=== PATIENT | male | born 2000 | race Caucasian/White ===

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

== ENCOUNTER 2022-05-13 00:51 | Emergency (ER) | payer MEDICAID ==
[~2022-05-13] VITALS: Ht 177.8 cm; Wt 89.0 kg
[~2022-05-13 00:51] MED LIST changes: +KEPP500 MT
[2022-05-13] MEDS ORDERED: ACETAMINOPHEN 325MG TABLET PO STA (01:51)
[2022-05-13] MEDS ORDERED: LEVETIRACETAM 1000MG PREMIX 100 ML IV ONE (02:00)
[2022-05-13] MEDS ORDERED: SODIUM CHLORIDE 0.9% 1,000 ML IV ONE (02:00)
[2022-05-13 02:40] LABS: BASOPHILS % 0.3 % (0.0-2.0); HEMOGLOBIN. 15.2 g/dL (14.0-18.0); LYMPHOCYTES % 8.2 % (20.0-50.0); MEAN CORPUSCULAR HEMOGLOBIN 31.3 pg (28.0-32.0); MEAN CORPUSCULAR VOLUME 92.8 fL (80.0-94.0); MEAN PLATELET VOLUME 8.2 fl (7.4-10.4); MONOCYTES % 5.8 % (2.0-8.0); NEUTROPHILS % 85.7 % (40.0-76.0); PLATELET 266 x1000/uL (130-400); RED BLOOD CELL COUNT 4.85 mill/uL (4.7-6.1)
[2022-05-13] MEDS ORDERED: KEPP500 MT (04:12)
[2022-05-13 04:25] VITALS: BP 115/61
[2022-05-13 05:35] LABS: CHLORIDE 103 mEq/L (98-107)
== END 2022-05-13 04:55 | disposition home or self-care (01) ==
LOC: ER 00:51
DX: R56.9 Unspecified convulsions (principal); F12.10 Cannabis abuse, uncomplicated; Z98.890 Other specified postprocedural states
CPT/HCPCS: 36415; 80053; 85025; 96365; 99284; J1953; J7030

== ENCOUNTER 2022-06-26 21:19 | Emergency (ER) | payer MEDICAID ==
[~2022-06-26] VITALS: Ht 177.8 cm; Wt 69.0 kg
[2022-06-26 21:34] VITALS: BP 132/76
== END 2022-06-26 22:30 | disposition left against medical advice (07) ==
LOC: ER 21:19
DX: Z53.21 Procedure and treatment not carried out due to patient leaving prior to being seen by health care provider (principal)

== ENCOUNTER 2022-08-13 14:40 | Emergency (ER) | payer MEDICAID ==
[~2022-08-13] VITALS: Ht 172.7 cm; Wt 82.0 kg
[2022-08-13] MEDS ORDERED: LEVETIRACETAM 500MG TABLET PO ONE (15:15)
[2022-08-13 15:35] LABS: BASOPHILS % 0.4 % (0.0-2.0); EOSINOPHILS % 0.1 % (0.0-5.0); HEMATOCRIT. 45.3 % (42.0-52.0); HEMOGLOBIN. 15.2 g/dL (14.0-18.0); LYMPHOCYTES % 10.2 % (20.0-50.0); MEAN CORPUSCULAR HEMOGLOBIN 31.3 pg (28.0-32.0); MEAN CORPUSCULAR VOLUME 93.2 fL (80.0-94.0); MEAN PLATELET VOLUME 7.6 fl (7.4-10.4); MONOCYTES % 3.9 % (2.0-8.0); NEUTROPHILS % 85.4 % (40.0-76.0); PLATELET 302 x1000/uL (130-400); RED BLOOD CELL COUNT 4.86 mill/uL (4.7-6.1); RED CELL DISTRIBUTION WIDTH 13.5 % (11.6-14.6)
[2022-08-13 15:37] LABS: CHLORIDE 105 mEq/L (98-107)
[2022-08-13 15:45] LABS: ETHANOL BLOOD < 10 mg/dL
[2022-08-13] MEDS ORDERED: ACETAMINOPHEN 325MG TABLET PO ONE (16:00)
[2022-08-13] MEDS ORDERED: ONDANSETRON HCL 4MG/2ML INJ IV ONE (16:00)
[2022-08-13] MEDS ORDERED: KEPP500 MT (16:56)
[2022-08-13 17:46] VITALS: BP 130/59
== END 2022-08-13 17:50 | disposition home or self-care (01) ==
LOC: ER 14:40
DX: G40.909 Epilepsy, unspecified, not intractable, without status epilepticus (principal); R51.9 Headache, unspecified; Z91.14 Patient's other noncompliance with medication regimen
CPT/HCPCS: 36415; 70450; 80053; 80320; 85025; 99284; J2405; G0480

== ENCOUNTER 2022-10-24 04:16 | Emergency (ER) | payer MEDICAID ==
[~2022-10-24] VITALS: Ht 175.3 cm; Wt 95.6 kg
[2022-10-24 04:25] VITALS: BP 106/63; PULSE 99; RESP 14; TEMP 98.2; O2SAT 98
[2022-10-24] MEDS ORDERED: LEVETIRACETAM 500MG TABLET PO ONE (06:30)
[2022-10-24] MEDS ORDERED: SUCR1TAB MT ×2 (07:54)
[2022-10-24] MEDS ORDERED: PROT20 MT ×2 (07:54)
== END 2022-10-24 08:32 | disposition home or self-care (01) ==
LOC: ER 04:16
DX: R41.0 Disorientation, unspecified (principal)
CPT/HCPCS: 99284

== ENCOUNTER 2022-12-01 19:48 | Emergency (ER) | payer MEDICAID ==
[~2022-12-01] VITALS: Ht 175.3 cm; Wt 84.0 kg
[2022-12-01 19:51] VITALS: BP 131/67
== END 2022-12-02 01:01 | disposition left against medical advice (07) ==
LOC: ER 19:48
DX: R11.2 Nausea with vomiting, unspecified (principal); Z53.21 Procedure and treatment not carried out due to patient leaving prior to being seen by health care provider
CPT/HCPCS: 99281

== ENCOUNTER 2023-03-30 10:13 | Emergency (ER) | payer MEDICAID ==
[~2023-03-30] VITALS: Ht 175.3 cm; Wt 88.0 kg
[2023-03-30 10:22] VITALS: BP 131/89; PULSE 105; RESP 20; TEMP 98.8; O2SAT 99
[2023-03-30] MEDS ORDERED: NIRM1TAB4 PO (11:23)
== END 2023-03-30 12:33 | disposition home or self-care (01) ==
LOC: ER 10:13
DX: U07.1 COVID-19 (principal); Z98.890 Other specified postprocedural states
CPT/HCPCS: 99283

== ENCOUNTER 2023-05-22 18:44 | Emergency (ER) | payer MEDICAID ==
[~2023-05-22] VITALS: Ht 175.3 cm; Wt 100.0 kg
[~2023-05-22 18:44] MED LIST changes: +NIRM1TAB4 PO
[2023-05-22 18:58] VITALS: BP 151/76; PULSE 120; RESP 18; TEMP 98.3; O2SAT 95
== END 2023-05-22 20:30 | disposition home or self-care (01) ==
LOC: ER 18:44
DX: R21 Rash and other nonspecific skin eruption (principal)
CPT/HCPCS: 99281

== ENCOUNTER 2023-06-12 14:34 | Emergency (ER) | payer MEDICAID ==
[~2023-06-12] VITALS: Ht 175.3 cm; Wt 100.0 kg
[2023-06-12 14:47] VITALS: BP 122/87; PULSE 81; RESP 16; TEMP 98.3; O2SAT 96
[2023-06-12] MEDS ORDERED: TOPUD MT (16:25)
== END 2023-06-12 19:19 | disposition home or self-care (01) ==
LOC: ER 14:51
DX: R56.9 Unspecified convulsions (principal)
CPT/HCPCS: 99282

== ENCOUNTER 2023-08-10 19:03 | Emergency (ER) | payer MEDICAID ==
[~2023-08-10] VITALS: Ht 175.3 cm; Wt 91.0 kg
[~2023-08-10 19:03] MED LIST changes: +TOPUD MT
[2023-08-10 19:17] VITALS: TEMP 97.7; O2SAT 97
[2023-08-10 20:46] LABS: CLARITY URINE CLEAR (CLEAR); COLOR URINE YELLOW (YELLOW); GLUCOSE URINE NEGATIVE (NEGATIVE); KETONES URINE NEGATIVE (NEGATIVE); LEUKOCYTE ESTERASE URINE NEGATIVE (NEGATIVE); NITRITE URINE NEGATIVE (NEGATIVE); OCCULT BLOOD URINE NEGATIVE (NEGATIVE); PROTEIN URINE NEGATIVE (NEGATIVE); SPECIFIC GRAVITY URINE 1.027 (1.005-1.030); UROBILINOGEN URINE 0.2 E.U./dL (0.2-1.0)
[2023-08-10 21:25] VITALS: BP 126/83; PULSE 88; RESP 16
== END 2023-08-10 21:26 | disposition home or self-care (01) ==
LOC: ER 19:03
DX: R35.0 Frequency of micturition (principal); R56.9 Unspecified convulsions; Z98.890 Other specified postprocedural states
CPT/HCPCS: 81003; 82962; 99283

== ENCOUNTER 2023-10-19 22:39 | Emergency (ER) | payer MEDICAID ==
[~2023-10-19] VITALS: Ht 172.7 cm; Wt 80.0 kg
[2023-10-19 22:42] VITALS: O2SAT 97
[2023-10-19] MEDS: LEVETIRACETAM 500MG TABLET PO ONE (23:45)
[2023-10-20 00:09] LABS: HEMATOCRIT. 44.3 % (42.0-52.0); HEMOGLOBIN. 14.9 g/dL (14.0-18.0); MEAN CORPUSCULAR HEMOGLOBIN 31.5 pg (28.0-32.0); MEAN CORPUSCULAR HGB CONC 33.8 g/dL (31.0-37.0); MEAN CORPUSCULAR VOLUME 93.2 fL (80.0-94.0); MEAN PLATELET VOLUME 7.4 fl (7.4-10.4); PLATELET 284 x1000/uL (130-400); RED BLOOD CELL COUNT 4.75 mill/uL (4.7-6.1); RED CELL DISTRIBUTION WIDTH 15.1 % (11.6-14.6); WHITE BLOOD COUNT 12.7 x1000/uL (4.5-11.0)
[2023-10-20 00:22] LABS: DIFFERENTIAL COMMENT 1
[2023-10-20 00:32] LABS: ALANINE AMINOTRANSFERASE 45 IU/L (10-49); ASPARTATE AMINOTRANSFERASE 29 IU/L (<34); BILIRUBIN TOTAL 0.8 mg/dL (0.1-1.0); CALCIUM 9.1 mg/dL (8.7-10.4); CARBON DIOXIDE 25 mEq/L (21-32); CHLORIDE 104 mEq/L (98-107); CREATININE 0.8 mg/dL (0.6-1.3); GLUCOSE 107 mg/dL (70-105); POTASSIUM 4.1 mEq/L (3.5-5.1); PROTEIN TOTAL 8.4 g/dL (6.0-8.3); SODIUM 137 mEq/L (136-145); UREA NITROGEN BLOOD 12 mg/dL (9-23)
[2023-10-20] MEDS: IBUPROFEN 800MG TABLET PO NR (01:14)
[2023-10-20] MEDS: HYDROCODONE/ACETAMINOPHEN 5/325MG TABLET PO NR (01:15)
[2023-10-20 01:19] VITALS: BP 124/82; PULSE 121; RESP 18; TEMP 98.8
[2023-10-20 02:13] LABS: PLATELET ESTIMATE NORMAL
== END 2023-10-20 01:21 | disposition home or self-care (01) ==
LOC: ER 22:39
DX: R51.9 Headache, unspecified (principal); R11.2 Nausea with vomiting, unspecified; R53.1 Weakness; G40.909 Epilepsy, unspecified, not intractable, without status epilepticus
CPT/HCPCS: 36415; 80053; 85025; 99284

== ENCOUNTER 2023-10-22 04:22 | Emergency (ER) | payer MEDICAID ==
[~2023-10-22] VITALS: Ht 180.3 cm; Wt 100.0 kg
[2023-10-22 04:28] VITALS: O2SAT 98
[2023-10-22 05:46] LABS: BASOPHILS % 1.1 % (0.0-2.0); EOSINOPHILS % 0.2 % (0.0-5.0); HEMOGLOBIN. 14.9 g/dL (14.0-18.0); LYMPHOCYTES % 34.2 % (20.0-50.0); MEAN CORPUSCULAR HEMOGLOBIN 31.9 pg (28.0-32.0); MEAN CORPUSCULAR HGB CONC 33.9 g/dL (31.0-37.0); MEAN CORPUSCULAR VOLUME 93.9 fL (80.0-94.0); MEAN PLATELET VOLUME 7.5 fl (7.4-10.4); MONOCYTES % 8.6 % (2.0-8.0); NEUTROPHILS % 55.9 % (40.0-76.0); PLATELET 320 x1000/uL (130-400); RED BLOOD CELL COUNT 4.69 mill/uL (4.7-6.1); WHITE BLOOD COUNT 5.9 x1000/uL (4.5-11.0)
[2023-10-22 06:07] LABS: ALANINE AMINOTRANSFERASE 78 IU/L (10-49); ALBUMIN 5.2 g/dL (3.2-4.8); ASPARTATE AMINOTRANSFERASE 59 IU/L (<34); BILIRUBIN TOTAL 0.2 mg/dL (0.1-1.0); CALCIUM 8.4 mg/dL (8.7-10.4); CARBON DIOXIDE 18 mEq/L (21-32); CHLORIDE 112 mEq/L (98-107); CREATININE 0.7 mg/dL (0.6-1.3); ETHANOL BLOOD 267 mg/dL (<10); GLUCOSE 98 mg/dL (70-105); POTASSIUM 3.2 mEq/L (3.5-5.1); PROTEIN TOTAL 8.7 g/dL (6.0-8.3); SODIUM 142 mEq/L (136-145); UREA NITROGEN BLOOD 10 mg/dL (9-23)
[2023-10-22 06:12] LABS: CLARITY URINE CLEAR (CLEAR); COLOR URINE YELLOW (YELLOW); GLUCOSE URINE NEGATIVE (NEGATIVE); KETONES URINE NEGATIVE (NEGATIVE); LEUKOCYTE ESTERASE URINE NEGATIVE (NEGATIVE); NITRITE URINE NEGATIVE (NEGATIVE); OCCULT BLOOD URINE NEGATIVE (NEGATIVE); PH URINE 5.5 (4.5-8.0); PROTEIN URINE TRACE (NEGATIVE); SPECIFIC GRAVITY URINE 1.023 (1.005-1.030); UROBILINOGEN URINE 0.2 E.U./dL (0.2-1.0)
[2023-10-22 06:22] LABS: *AMPHETAMINES SCREEN URINE NEGATIVE (NEGATIVE); *BARBITURATES SCREEN URINE NEGATIVE (NEGATIVE); *BENZODIAZEPINES SCREEN URINE PRESUMPTIVE POSITIVE (NEGATIVE); *COCAINE SCREEN URINE NEGATIVE (NEGATIVE); CANNABINOID URINE SCREEN PRESUMPTIVE POSITIVE (NEGATIVE); ECSTASY MDMA SCREEN URINE NEGATIVE (NEGATIVE); METHADONE URINE SCREEN Neg (NEGATIVE); OPIATES URINE SCREEN NEGATIVE (NEGATIVE); PHENCYCLIDINE URINE SCREEN NEGATIVE (NEGATIVE)
[2023-10-22] MEDS: ACETAMINOPHEN 325MG TABLET PO ONE (06:32)
[2023-10-22 07:14] LABS: BACTERIA URINE NONE SEEN; RBC URINE NONE SEEN /hpf (0-2); SQUAMOUS EPITHELIAL CELL URINE NONE SEEN /lpf (RARE/1+); WBC URINE NONE SEEN /hpf (0-2)
[2023-10-22 07:35] VITALS: BP 106/57; PULSE 100; RESP 20; TEMP 98.8
== END 2023-10-22 07:39 | disposition home or self-care (01) ==
LOC: ER 04:22
DX: F19.10 Other psychoactive substance abuse, uncomplicated (principal); F10.129 Alcohol abuse with intoxication, unspecified; Y90.8 Blood alcohol level of 240 mg/100 ml or more
CPT/HCPCS: 36415; 80053; 80305; 80320; 81003; 82962; 85025; 99283; G0480

== ENCOUNTER 2023-12-15 18:25 | Emergency (ER) | payer MEDICAID ==
[~2023-12-15] VITALS: Ht 180.3 cm; Wt 64.0 kg
[2023-12-15 18:57] VITALS: O2SAT 98
[2023-12-15] MEDS ORDERED: TETANUS, DIPHTHERIA, PERTUSSIS VAC/PF 0.5ML (>10YR OLD) IM ONE (20:00)
[2023-12-15] MEDS ORDERED: IBUPROFEN 600MG TABLET PO ONE (20:00)
[2023-12-15] MEDS ORDERED: BACITRACIN ZINC OINT UDPKT TOP ONE (20:15)
[2023-12-15] MEDS ORDERED: CEPH500C2 MT (21:06)
[2023-12-15] MEDS ORDERED: IBUP-2029 MT (21:06)
[2023-12-15] MEDS ORDERED: BO1 TP (21:06)
[2023-12-15] MEDS: LIDOCAINE HCL/PF 1% 10 MG/ML 5ML VIAL INFIL ONE (22:00)
[2023-12-15] MEDS: BACITRACIN ZINC OINT UDPKT TOP NR (22:00)
[2023-12-15 22:15] VITALS: BP 110/68; PULSE 90; RESP 16; TEMP 97.8
[2023-12-15] MEDS: IBUPROFEN 600MG TABLET PO NR (23:01)
[2023-12-15] MEDS: TETANUS, DIPHTHERIA, PERTUSSIS VAC/PF 0.5ML (>10YR OLD) IM ONE (23:03)
== END 2023-12-15 19:50 | disposition home or self-care (01) ==
LOC: ER 18:25
DX: S91.312A Laceration without foreign body, left foot, initial encounter (principal); W52.XXXA Crushed, pushed or stepped on by crowd or human stampede, initial encounter; Y93.89 Activity, other specified; Y92.89 Other specified places as the place of occurrence of the external cause; Y99.8 Other external cause status
CPT/HCPCS: 99283; 73630; 12001; J3490

== ENCOUNTER 2023-12-17 11:32 | Emergency (ER) | payer MEDICAID ==
[~2023-12-17] VITALS: Ht 182.9 cm; Wt 99.3 kg
[~2023-12-17 11:32] MED LIST changes: +BO1 TP; +CEPH500C2 MT; +IBUP-2029 MT
[2023-12-17 11:49] VITALS: O2SAT 96
[2023-12-17] MEDS: ACETAMINOPHEN 325MG TABLET PO ONE (14:06)
[2023-12-17 14:19] VITALS: BP 128/85; PULSE 98; RESP 18; TEMP 98
== END 2023-12-17 14:30 | disposition home or self-care (01) ==
LOC: ER 11:47
DX: M79.672 Pain in left foot (principal); Z48.00 Encounter for change or removal of nonsurgical wound dressing
CPT/HCPCS: 99282

== ENCOUNTER 2023-12-18 10:39 | Inpatient (IN) | payer MEDICAID ==
[~2023-12-18] VITALS: Ht 172.7 cm; Wt 103.9 kg
[2023-12-18] VITALS (9 sets, daily range): BP systolic 88–129; BP diastolic 32–90; PULSE 104–120; RESP 12–33; TEMP 97.6–98.8; O2SAT 90
[2023-12-18] MEDS ORDERED: LACTATED RINGERS 1,000 ML IV SCH (11:00)
[2023-12-18 11:26] LABS: BG BASE EXCESS -12.3 mmol/L (-2.0-2.0); BG CARBOXYHEMOGLOBIN 0.5 % (0.5-1.5); BG DEOXYHEMOGLOBIN 7.6 % (0.0-5.0); BG FRACTION INSPIRED OXYGEN 100; BG HCO3 ACT 17.5 mmol/L (22.0-26.0); BG METHEMOGLOBIN 0.1 % (0.0-1.5); BG OXYGEN SATURATION 92.4 % (92.0-98.5); BG OXYHEMOGLOBIN 91.8 % (94.0-97.0); BG PCO2 55.8 mmHg (35.0-45.0); BG PH 7.115 (7.350-7.450); BG PO2 74.9 mmHg (75.0-100.0); BG SAMPLE SITE RIGHT RADIAL; BG TOTAL HEMOGLOBIN 15.4 g/dL (12.0-18.0); BG VENT MODE MASK - NRB
[2023-12-18 11:38] LABS: BASOPHILS % 0.2 % (0.0-2.0); EOSINOPHILS % 0.2 % (0.0-5.0); HEMATOCRIT. 45.1 % (42.0-52.0); HEMOGLOBIN. 14.7 g/dL (14.0-18.0); LYMPHOCYTES % 9.7 % (20.0-50.0); MEAN CORPUSCULAR HGB CONC 32.7 g/dL (31.0-37.0); MEAN CORPUSCULAR VOLUME 94.8 fL (80.0-94.0); MEAN PLATELET VOLUME 7.6 fl (7.4-10.4); MONOCYTES % 4.1 % (2.0-8.0); NEUTROPHILS % 85.8 % (40.0-76.0); PLATELET 255 x1000/uL (130-400); RED BLOOD CELL COUNT 4.76 mill/uL (4.7-6.1); WHITE BLOOD COUNT 21.2 x1000/uL (4.5-11.0)
[2023-12-18 11:49] LABS: CHLORIDE 106 mEq/L (98-107); POTASSIUM 3.8 mEq/L (3.5-5.1); SODIUM 145 mEq/L (136-145)
[2023-12-18 11:51] LABS: CALCIUM 8.6 mg/dL (8.7-10.4); CARBON DIOXIDE 21 mEq/L (21-32)
[2023-12-18 11:55] LABS: UREA NITROGEN BLOOD 13 mg/dL (9-23)
[2023-12-18 11:56] LABS: GLUCOSE 135 mg/dL (70-105)
[2023-12-18 11:57] LABS: ALANINE AMINOTRANSFERASE 269 IU/L (10-49)
[2023-12-18 11:58] LABS: ACETAMINOPHEN < 2 ug/mL (10-30); ALBUMIN 4.3 g/dL (3.2-4.8); ASPARTATE AMINOTRANSFERASE 307 IU/L (<34); BILIRUBIN DIRECT 0.1 mg/dL (<=3.0); BILIRUBIN TOTAL 0.4 mg/dL (0.1-1.0)
[2023-12-18 12:20] LABS: CREATININE 2.3 mg/dL (0.6-1.3); ETHANOL BLOOD < 10 mg/dL (<10)
[2023-12-18 13:45] LABS: CREATINE KINASE 4689 IU/L (46-171)
[2023-12-18] MEDS ORDERED: PIPERACILLIN/TAZO 3.375G/50ML 50 ML IV SCH (14:00)
[2023-12-18] MEDS ORDERED: IPRATROPIUM/ALBUTEROL 0.5-3(2.5)MG/3ML NEB HHN PRN ×2 (18:00→22:00)
[2023-12-18] MEDS: DEXT 5%/0.45% NACL 1000ML 1,000 ML IV SCH (22:01)
[2023-12-18] MEDS: LEVETIRACETAM 500MG PREMIX 100 ML IV NR (22:02)
[2023-12-18] MEDS: IPRATROPIUM/ALBUTEROL 0.5-3(2.5)MG/3ML NEB HHN SCH (22:22)
[2023-12-18 22:25] LABS: BG CARBOXYHEMOGLOBIN 0.4 % (0.5-1.5); BG DEOXYHEMOGLOBIN 10.7 % (0.0-5.0); BG FRACTION INSPIRED OXYGEN 100; BG HCO3 ACT 22.3 mmol/L (22.0-26.0); BG METHEMOGLOBIN 0.2 % (0.0-1.5); BG OXYGEN SATURATION 89.2 % (92.0-98.5); BG OXYHEMOGLOBIN 88.7 % (94.0-97.0); BG PCO2 49.3 mmHg (35.0-45.0); BG PH 7.273 (7.350-7.450); BG PO2 59.9 mmHg (75.0-100.0); BG TOTAL HEMOGLOBIN 15.7 g/dL (12.0-18.0); BG VENT MODE MASK - NRB
[2023-12-18] MEDS ORDERED: VANCOMYCIN 1G PREMIX 200 ML IV SCH (23:00)
[2023-12-18] MEDS ORDERED: IPRATROPIUM/ALBUTEROL 0.5-3(2.5)MG/3ML NEB NEB PRN (23:00)
[2023-12-19] VITALS (89 sets, daily range): BP systolic 93–143; BP diastolic 60–105; PULSE 102–120; RESP 8–35; TEMP 98.4–103.1
[2023-12-19] MEDS: THIAMINE HCL 200 MG in SODIUM CHLORIDE 0.9% 98 ML IV SCH (00:40)
[2023-12-19] MEDS: ACETAMINOPHEN 650MG SUPP PR PRN (00:41)
[2023-12-19 00:45] LABS: CLARITY URINE CLEAR (CLEAR); COLOR URINE DARK YELLOW (YELLOW); GLUCOSE URINE NEGATIVE (NEGATIVE); KETONES URINE NEGATIVE (NEGATIVE); LEUKOCYTE ESTERASE URINE NEGATIVE (NEGATIVE); NITRITE URINE NEGATIVE (NEGATIVE); OCCULT BLOOD URINE 3+ (NEGATIVE); PH URINE 5.5 (4.5-8.0); PROTEIN URINE 2+ (NEGATIVE); SPECIFIC GRAVITY URINE 1.013 (1.005-1.030)
[2023-12-19 00:49] LABS: *AMPHETAMINES SCREEN URINE NEGATIVE (NEGATIVE); *BARBITURATES SCREEN URINE NEGATIVE (NEGATIVE); *BENZODIAZEPINES SCREEN URINE PRESUMPTIVE POSITIVE (NEGATIVE); *COCAINE SCREEN URINE NEGATIVE (NEGATIVE)
[2023-12-19 00:50] LABS: CANNABINOID URINE SCREEN NEGATIVE (NEGATIVE); ECSTASY MDMA SCREEN URINE NEGATIVE (NEGATIVE); METHADONE URINE SCREEN NEGATIVE (NEGATIVE); OPIATES URINE SCREEN PRESUMPTIVE POSITIVE (NEGATIVE); PHENCYCLIDINE URINE SCREEN NEGATIVE (NEGATIVE)
[2023-12-19] MEDS: VANCOMYCIN 1.5GM/250ML IV NR (01:52)
[2023-12-19] MEDS: ACYCLOVIR IV SCH (02:36)
[2023-12-19] MEDS: WATER IV SCH (02:36)
[2023-12-19] MEDS: DEXT 5% IV SCH (02:36)
[2023-12-19 03:33] LABS: RBC URINE 0-2 /hpf (0-2); SQUAMOUS EPITHELIAL CELL URINE FEW /lpf (RARE/1+); WBC URINE 0-2 /hpf (0-2)
[2023-12-19 03:34] LABS: BACTERIA URINE NONE SEEN
[2023-12-19] MEDS: PIPERACILLIN/TAZO 3.375G/50ML 50 ML IV SCH ×2 (03:43→09:22)
[2023-12-19 05:26] LABS: POTASSIUM 4.9 mEq/L (3.5-5.1)
[2023-12-19 05:27] LABS: CALCIUM 7.6 mg/dL (8.7-10.4)
[2023-12-19 05:32] LABS: CREATININE 1.8 mg/dL (0.6-1.3)
[2023-12-19 05:44] LABS: AMMONIA 64 uMol/L (<32)
[2023-12-19 05:55] LABS: HEPATITIS B SURFACE ANTIGEN NEGATIVE (Negative)
[2023-12-19 06:16] LABS: HEPATITIS A AB IGM NEGATIVE (Negative); HEPATITIS B CORE AB IGM NEGATIVE (Negative)
[2023-12-19 06:17] LABS: HEPATITIS C AB NON REACTIVE (Neg) (Negative)
[2023-12-19 07:37] LABS: BG BASE EXCESS -4.1 mmol/L (-2.0-2.0); BG CARBOXYHEMOGLOBIN 0.2 % (0.5-1.5); BG DEOXYHEMOGLOBIN 3.5 % (0.0-5.0); BG HCO3 ACT 23.1 mmol/L (22.0-26.0); BG METHEMOGLOBIN 0.3 % (0.0-1.5); BG OXYGEN SATURATION 96.5 % (92.0-98.5); BG PCO2 50.2 mmHg (35.0-45.0); BG PH 7.281 (7.350-7.450); BG PO2 93.5 mmHg (75.0-100.0); BG SAMPLE SITE RIGHT RADIAL; BG TOTAL HEMOGLOBIN 15.7 g/dL (12.0-18.0); BG VENT MODE MASK - BIPAP
[2023-12-19] MEDS ORDERED: LIDOCAINE HCL/PF 1% 2ML VIAL ONE (09:00)
[2023-12-19 09:21] LABS: BASOPHILS % 0.1 % (0.0-2.0); HEMATOCRIT. 45.4 % (42.0-52.0); HEMOGLOBIN. 14.7 g/dL (14.0-18.0); LYMPHOCYTES % 10.2 % (20.0-50.0); MEAN CORPUSCULAR HEMOGLOBIN 31.3 pg (28.0-32.0); MEAN CORPUSCULAR HGB CONC 32.4 g/dL (31.0-37.0); MEAN CORPUSCULAR VOLUME 96.4 fL (80.0-94.0); MEAN PLATELET VOLUME 7.6 fl (7.4-10.4); MONOCYTES % 3.9 % (2.0-8.0); NEUTROPHILS % 85.8 % (40.0-76.0); PLATELET 208 x1000/uL (130-400); RED BLOOD CELL COUNT 4.71 mill/uL (4.7-6.1); RED CELL DISTRIBUTION WIDTH 13.9 % (11.6-14.6); WHITE BLOOD COUNT 17.3 x1000/uL (4.5-11.0)
[2023-12-19] MEDS: VANCOMYCIN 500MG PREMIX 100 ML IV SCH (09:22)
[2023-12-19] MEDS: ENOXAPARIN 40MG/0.4ML SYR SUBCUT SCH (09:22)
[2023-12-19] MEDS: PANTOPRAZOLE SODIUM 40 MG/VIAL IV SCH (09:22)
[2023-12-19 09:23] LABS: ALBUMIN 3.9 g/dL (3.2-4.8); BILIRUBIN DIRECT 0.2 mg/dL (<=3.0); BILIRUBIN TOTAL 0.4 mg/dL (0.1-1.0); PROTEIN TOTAL 6.1 g/dL (6.0-8.3)
[2023-12-19 09:34] LABS: ALANINE AMINOTRANSFERASE 2017 IU/L (10-49); ASPARTATE AMINOTRANSFERASE 2279 IU/L (<34)
[2023-12-19] MEDS ORDERED: CEFEPIME 1GM IN DEXT 5% 50ML IV SCH (12:45)
[2023-12-19] MEDS ORDERED: LEVETIRACETAM 1,000 MG in SODIUM CHLORIDE 0.9% 100 ML IV SCH (14:00)
[2023-12-19] MEDS: CEFEPIME 2GM/100ML 100 ML IV SCH (14:37)
[2023-12-19] MEDS: LEVETIRACETAM 1000MG PREMIX 100 ML IV SCH (15:24)
[2023-12-19] MEDS ORDERED: METRONIDAZOLE 500 MG PREMIX 100 ML IV SCH (21:00)
[2023-12-19] MEDS ORDERED: METRONIDAZOLE 500MG TABLET PO SCH (21:00)
[2023-12-19] MEDS: METRONIDAZOLE 500 MG PREMIX 100 ML IV SCH (21:16)
[2023-12-19 21:48] LABS: CREATINE KINASE 21838 IU/L (46-171)
[2023-12-20] VITALS (51 sets, daily range): BP systolic 114–164; BP diastolic 73–109; PULSE 93–118; RESP 10–33; TEMP 98–100; O2SAT 95–96
[2023-12-20 05:30] LABS: BASOPHILS % 0.2 % (0.0-2.0); EOSINOPHILS % 0.3 % (0.0-5.0); HEMATOCRIT. 40.6 % (42.0-52.0); HEMOGLOBIN. 13.2 g/dL (14.0-18.0); MEAN CORPUSCULAR HGB CONC 32.5 g/dL (31.0-37.0); MEAN CORPUSCULAR VOLUME 95.3 fL (80.0-94.0); MEAN PLATELET VOLUME 8.4 fl (7.4-10.4); MONOCYTES % 4.4 % (2.0-8.0); NEUTROPHILS % 87.1 % (40.0-76.0); PLATELET 171 x1000/uL (130-400); RED BLOOD CELL COUNT 4.26 mill/uL (4.7-6.1); RED CELL DISTRIBUTION WIDTH 13.6 % (11.6-14.6); WHITE BLOOD COUNT 13.2 x1000/uL (4.5-11.0)
[2023-12-20 05:31] LABS: POTASSIUM 3.8 mEq/L (3.5-5.1)
[2023-12-20 05:32] LABS: CALCIUM 7.8 mg/dL (8.7-10.4)
[2023-12-20 05:37] LABS: CREATININE 1.6 mg/dL (0.6-1.3)
[2023-12-20 05:44] LABS: THYROID STIMULATING HORMONE 0.8 uIU/mL (0.55-4.78)
[2023-12-20 08:39] LABS: BG BASE EXCESS -3.2 mmol/L (-2.0-2.0); BG CARBOXYHEMOGLOBIN 0.4 % (0.5-1.5); BG DEOXYHEMOGLOBIN 1.2 % (0.0-5.0); BG FRACTION INSPIRED OXYGEN 36; BG HCO3 ACT 22.4 mmol/L (22.0-26.0); BG METHEMOGLOBIN 0.3 % (0.0-1.5); BG OXYGEN SATURATION 98.8 % (92.0-98.5); BG OXYHEMOGLOBIN 98.1 % (94.0-97.0); BG PCO2 41.9 mmHg (35.0-45.0); BG PH 7.345 (7.350-7.450); BG PO2 120.3 mmHg (75.0-100.0); BG SAMPLE SITE RIGHT RADIAL; BG TOTAL HEMOGLOBIN 13.5 g/dL (12.0-18.0); BG TOTAL RESPIRATORY RATE 18 b/min; BG VENT MODE MASK - BIPAP
[2023-12-20] MEDS: VANCOMYCIN 1.25GM PMX (XELLIA) 250 ML IV SCH (09:59)
[2023-12-20] MEDS: ACETAMINOPHEN 500MG TABLET PO PRN (10:28)
[2023-12-20] MEDS ORDERED: ACETAMINOPHEN 650MG SUPP PR PRN (10:30)
[2023-12-20] MEDS: ONDANSETRON HCL 4MG/2ML INJ IV PRN (11:09)
[2023-12-20 21:52] LABS: ALBUMIN 3.4 g/dL (3.2-4.8); BILIRUBIN DIRECT 0.3 mg/dL (<=3.0); BILIRUBIN TOTAL 0.6 mg/dL (0.1-1.0); PROTEIN TOTAL 5.7 g/dL (6.0-8.3)
[2023-12-20 22:03] LABS: ALANINE AMINOTRANSFERASE 2336 IU/L (10-49); ASPARTATE AMINOTRANSFERASE 1503 IU/L (<34)
[2023-12-21] VITALS (16 sets, daily range): BP systolic 114–134; BP diastolic 74–89; PULSE 77–109; RESP 14–25; TEMP 98.1–99.7; O2SAT 92–96
[2023-12-21 09:33] LABS: BASOPHILS % 0.3 % (0.0-2.0); EOSINOPHILS % 0.5 % (0.0-5.0); HEMATOCRIT. 35.3 % (42.0-52.0); LYMPHOCYTES % 9.3 % (20.0-50.0); MEAN CORPUSCULAR HEMOGLOBIN 31.2 pg (28.0-32.0); MEAN CORPUSCULAR HGB CONC 33.9 g/dL (31.0-37.0); MEAN PLATELET VOLUME 8.1 fl (7.4-10.4); MONOCYTES % 5.1 % (2.0-8.0); NEUTROPHILS % 84.8 % (40.0-76.0); PLATELET 171 x1000/uL (130-400); RED BLOOD CELL COUNT 3.83 mill/uL (4.7-6.1); RED CELL DISTRIBUTION WIDTH 13.3 % (11.6-14.6); WHITE BLOOD COUNT 14.1 x1000/uL (4.5-11.0)
[2023-12-21 09:44] LABS: CHLORIDE 110 mEq/L (98-107); POTASSIUM 3.4 mEq/L (3.5-5.1); SODIUM 143 mEq/L (136-145)
[2023-12-21 09:45] LABS: CALCIUM 8.4 mg/dL (8.7-10.4); CARBON DIOXIDE 25 mEq/L (21-32)
[2023-12-21 09:50] LABS: CREATININE 1.4 mg/dL (0.6-1.3); GLUCOSE 130 mg/dL (70-105); UREA NITROGEN BLOOD 12 mg/dL (9-23)
[2023-12-21 09:52] LABS: ALBUMIN 3.6 g/dL (3.2-4.8); ASPARTATE AMINOTRANSFERASE 551 IU/L (<34); BILIRUBIN DIRECT 0.4 mg/dL (<=3.0); BILIRUBIN TOTAL 0.9 mg/dL (0.1-1.0); PROTEIN TOTAL 5.9 g/dL (6.0-8.3)
[2023-12-21 10:03] LABS: ALANINE AMINOTRANSFERASE 1539 IU/L (10-49)
[2023-12-21 10:07] LABS: CREATINE KINASE 10313 IU/L (46-171)
[2023-12-21 11:04] LABS: AMYLASE 1365 IU/L (30-118)
[2023-12-22] VITALS (14 sets, daily range): BP systolic 114–133; BP diastolic 60–111; PULSE 79–100; RESP 15–23; TEMP 97–100; O2SAT 97–98
[2023-12-22 12:30] LABS: CHLORIDE 109 mEq/L (98-107); SODIUM 141 mEq/L (136-145)
[2023-12-22 12:31] LABS: CALCIUM 8.2 mg/dL (8.7-10.4); CARBON DIOXIDE 27 mEq/L (21-32)
[2023-12-22 12:36] LABS: CREATININE 1.3 mg/dL (0.6-1.3); GLUCOSE 123 mg/dL (70-105)
[2023-12-22 12:37] LABS: BASOPHILS % 0.4 % (0.0-2.0); EOSINOPHILS % 2.8 % (0.0-5.0); HEMATOCRIT. 35.6 % (42.0-52.0); LYMPHOCYTES % 16.8 % (20.0-50.0); MEAN CORPUSCULAR HEMOGLOBIN 31.2 pg (28.0-32.0); MEAN CORPUSCULAR HGB CONC 33.7 g/dL (31.0-37.0); MEAN CORPUSCULAR VOLUME 92.7 fL (80.0-94.0); MONOCYTES % 9.8 % (2.0-8.0); NEUTROPHILS % 70.2 % (40.0-76.0); PLATELET 203 x1000/uL (130-400); RED BLOOD CELL COUNT 3.84 mill/uL (4.7-6.1); RED CELL DISTRIBUTION WIDTH 13.2 % (11.6-14.6); UREA NITROGEN BLOOD 10 mg/dL (9-23); WHITE BLOOD COUNT 9.7 x1000/uL (4.5-11.0)
[2023-12-22 12:38] LABS: ALANINE AMINOTRANSFERASE 1025 IU/L (10-49); ALBUMIN 3.2 g/dL (3.2-4.8); ASPARTATE AMINOTRANSFERASE 268 IU/L (<34)
[2023-12-22 12:39] LABS: BILIRUBIN DIRECT 0.4 mg/dL (<=3.0); BILIRUBIN TOTAL 0.9 mg/dL (0.1-1.0); PROTEIN TOTAL 5.4 g/dL (6.0-8.3)
[2023-12-22 12:49] LABS: CREATINE KINASE 3901 IU/L (46-171)
[2023-12-22] MEDS: DEXTROSE 5% WATER 1,000 ML IV SCH (14:10)
[2023-12-22] MEDS: BISACODYL 10MG SUPP PR NR (19:18)
[2023-12-22] MEDS: KCL 20MEQ/100ML PREMIX 100 ML IV SCH (19:18)
[2023-12-22] MEDS: LEVETIRACETAM 500MG TABLET PO SCH (22:21)
[2023-12-23] VITALS (15 sets, daily range): BP systolic 109–139; BP diastolic 64–105; PULSE 54–87; RESP 14–24; TEMP 98–100.1; O2SAT 97–98
[2023-12-23 07:08] LABS: AMMONIA 85 uMol/L (<32)
[2023-12-23] MEDS: FAMOTIDINE 20MG/2ML VIAL IV SCH (08:32)
[2023-12-23] MEDS: CEFEPIME 2GM/100ML 100 ML IV SCH (13:09)
[2023-12-23 16:53] LABS: BASOPHILS % 0.5 % (0.0-2.0); EOSINOPHILS % 2.3 % (0.0-5.0); HEMOGLOBIN. 12.1 g/dL (14.0-18.0); LYMPHOCYTES % 13.3 % (20.0-50.0); MEAN CORPUSCULAR HEMOGLOBIN 31.3 pg (28.0-32.0); MEAN CORPUSCULAR HGB CONC 33.5 g/dL (31.0-37.0); MEAN CORPUSCULAR VOLUME 93.4 fL (80.0-94.0); MONOCYTES % 11.3 % (2.0-8.0); NEUTROPHILS % 72.6 % (40.0-76.0); PLATELET 257 x1000/uL (130-400); RED BLOOD CELL COUNT 3.85 mill/uL (4.7-6.1); RED CELL DISTRIBUTION WIDTH 13.1 % (11.6-14.6); WHITE BLOOD COUNT 9.9 x1000/uL (4.5-11.0)
[2023-12-23 17:07] LABS: CARBON DIOXIDE 23 mEq/L (21-32); CHLORIDE 105 mEq/L (98-107); POTASSIUM 3.2 mEq/L (3.5-5.1); SODIUM 136 mEq/L (136-145)
[2023-12-23 17:08] LABS: CALCIUM 8.7 mg/dL (8.7-10.4)
[2023-12-23 17:12] LABS: CREATININE 1.1 mg/dL (0.6-1.3); GLUCOSE 113 mg/dL (70-105)
[2023-12-23 17:13] LABS: UREA NITROGEN BLOOD 9 mg/dL (9-23)
[2023-12-23 17:14] LABS: ALANINE AMINOTRANSFERASE 701 IU/L (10-49); ALBUMIN 3.4 g/dL (3.2-4.8); AMYLASE 406 IU/L (30-118); ASPARTATE AMINOTRANSFERASE 150 IU/L (<34)
[2023-12-23 17:15] LABS: BILIRUBIN DIRECT 0.3 mg/dL (<=3.0); BILIRUBIN TOTAL 0.8 mg/dL (0.1-1.0); CREATINE KINASE > 1300 IU/L (46-171); PROTEIN TOTAL 5.9 g/dL (6.0-8.3)
[2023-12-23] MEDS: METRONIDAZOLE 500MG TABLET PO SCH (20:16)
[2023-12-23] MEDS: ENOXAPARIN 30MG/0.3ML SYR SUBCUT SCH (20:16)
[2023-12-24] VITALS (18 sets, daily range): BP systolic 106–132; BP diastolic 58–91; PULSE 49–92; RESP 14–21; TEMP 97.2–98.5
[2023-12-24 05:22] LABS: CHLORIDE 106 mEq/L (98-107); SODIUM 140 mEq/L (136-145)
[2023-12-24 05:25] LABS: CARBON DIOXIDE 27 mEq/L (21-32)
[2023-12-24 05:26] LABS: CALCIUM 9.6 mg/dL (8.7-10.4)
[2023-12-24 05:30] LABS: CREATINE KINASE 1064 IU/L (46-171); CREATININE 1.1 mg/dL (0.6-1.3); GLUCOSE 113 mg/dL (70-105); UREA NITROGEN BLOOD 11 mg/dL (9-23)
[2023-12-24 05:31] LABS: ALANINE AMINOTRANSFERASE 587 IU/L (10-49); AMMONIA 32 uMol/L (<32)
[2023-12-24 05:32] LABS: ALBUMIN 3.7 g/dL (3.2-4.8); AMYLASE 259 IU/L (30-118); ASPARTATE AMINOTRANSFERASE 110 IU/L (<34)
[2023-12-24 05:33] LABS: BILIRUBIN DIRECT 0.3 mg/dL (<=3.0); BILIRUBIN TOTAL 0.6 mg/dL (0.1-1.0); PROTEIN TOTAL 5.9 g/dL (6.0-8.3)
[2023-12-24 05:57] LABS: POTASSIUM 2.8 mEq/L (3.5-5.1)
[2023-12-24 06:24] LABS: BASOPHILS % 0.6 % (0.0-2.0); EOSINOPHILS % 2.1 % (0.0-5.0); HEMATOCRIT. 36.8 % (42.0-52.0); HEMOGLOBIN. 12.8 g/dL (14.0-18.0); LYMPHOCYTES % 17.4 % (20.0-50.0); MEAN CORPUSCULAR HEMOGLOBIN 31.3 pg (28.0-32.0); MEAN CORPUSCULAR HGB CONC 34.8 g/dL (31.0-37.0); MEAN CORPUSCULAR VOLUME 90.1 fL (80.0-94.0); MEAN PLATELET VOLUME 8.4 fl (7.4-10.4); MONOCYTES % 11.1 % (2.0-8.0); NEUTROPHILS % 68.8 % (40.0-76.0); PLATELET 253 x1000/uL (130-400); RED BLOOD CELL COUNT 4.08 mill/uL (4.7-6.1); RED CELL DISTRIBUTION WIDTH 13.3 % (11.6-14.6); WHITE BLOOD COUNT 10.1 x1000/uL (4.5-11.0)
[2023-12-24] MEDS ORDERED: POTASSIUM CHLORIDE 20MEQ TABLET SR PO NR (06:30)
[2023-12-24] MEDS: POTASSIUM CHLORIDE 20MEQ TABLET SR PO NR (07:01)
[2023-12-24 09:10] LABS: AMPHETAMINE SCREEN Negative ng/mL (Cutoff:50); BARBITURATE SCREEN Negative ug/mL (Cutoff:0.1); CANNABINOID SCREEN Negative ng/mL (Cutoff:5); OXYCODONE SCREEN Negative ng/mL (Cutoff:5); PHENCYCLIDINE SCREEN Negative ng/mL (Cutoff:8)
[2023-12-24 13:28] LABS: POTASSIUM 3.6 mEq/L (3.5-5.1)
[2023-12-24] MEDS ORDERED: LEVE500T19 PO (16:39)
[2023-12-24] MEDS ORDERED: VALA500T55 PO (16:39)
[2023-12-24] MEDS ORDERED: ZONI100C45 PO (16:41)
[2023-12-25] VITALS (11 sets, daily range): BP systolic 100–128; BP diastolic 45–91; PULSE 55–88; RESP 16–22; TEMP 97–98.5; O2SAT 98
[2023-12-25] MEDS: TEMAZEPAM 15MG CAPSULE PO PRN (00:58)
[2023-12-25 07:19] LABS: AMMONIA 59 uMol/L (<32)
[2023-12-25 07:35] LABS: BASOPHILS % 0.6 % (0.0-2.0); EOSINOPHILS % 3.7 % (0.0-5.0); HEMATOCRIT. 37.8 % (42.0-52.0); HEMOGLOBIN. 12.8 g/dL (14.0-18.0); LYMPHOCYTES % 20.1 % (20.0-50.0); MEAN CORPUSCULAR HEMOGLOBIN 31.1 pg (28.0-32.0); MEAN CORPUSCULAR HGB CONC 33.9 g/dL (31.0-37.0); MEAN CORPUSCULAR VOLUME 91.9 fL (80.0-94.0); MEAN PLATELET VOLUME 8.2 fl (7.4-10.4); MONOCYTES % 11.1 % (2.0-8.0); NEUTROPHILS % 64.5 % (40.0-76.0); PLATELET 304 x1000/uL (130-400); RED BLOOD CELL COUNT 4.12 mill/uL (4.7-6.1); RED CELL DISTRIBUTION WIDTH 13.2 % (11.6-14.6); WHITE BLOOD COUNT 8.7 x1000/uL (4.5-11.0)
[2023-12-25 07:37] LABS: CHLORIDE 106 mEq/L (98-107); SODIUM 138 mEq/L (136-145)
[2023-12-25 07:39] LABS: CALCIUM 9.7 mg/dL (8.7-10.4); CARBON DIOXIDE 26 mEq/L (21-32)
[2023-12-25 07:44] LABS: CREATININE 1.1 mg/dL (0.6-1.3); GLUCOSE 105 mg/dL (70-105); UREA NITROGEN BLOOD 8 mg/dL (9-23)
[2023-12-25 07:45] LABS: ALANINE AMINOTRANSFERASE 424 IU/L (10-49)
[2023-12-25 07:46] LABS: ALBUMIN 3.9 g/dL (3.2-4.8); AMYLASE 293 IU/L (30-118); ASPARTATE AMINOTRANSFERASE 64 IU/L (<34)
[2023-12-25 07:47] LABS: BILIRUBIN DIRECT 0.2 mg/dL (<=3.0); BILIRUBIN TOTAL 0.5 mg/dL (0.1-1.0); PROTEIN TOTAL 6.1 g/dL (6.0-8.3)
[2023-12-25] MEDS: POTASSIUM CHLORIDE 20MEQ/PACKET PO NR (09:54)
[2023-12-31 06:10] LABS: DIHYDROCODEINE UNCONJUGATED Negative (.); OPIATES SCREEN ++POSITIVE++ ng/mL (Cutoff:5)
== END 2023-12-25 17:58 | disposition home or self-care (01) | DRG 52 ==
LOC: ER 11:56 → 5EST 13:11 → EDBEDREQTM 13:18 → EDBEDREQ 13:18 → MICUSO 23:57 → 5EST 12-20 16:35
PROVIDERS: ADMIT Internal Medicine; ATTEND Internal Medicine
PROC: 5A09357 Assistance with Respiratory Ventilation, Less than 24 Consecutive Hours, Continuous Positive Airway Pressure (ICD-10-PCS; principal; 2023-12-19)
PROC: 4A10X4Z Monitoring of Central Nervous Electrical Activity, External Approach (ICD-10-PCS; 2023-12-21)
DX: G93.41 Metabolic encephalopathy (principal); J69.0 Pneumonitis due to inhalation of food and vomit; J96.92 Respiratory failure, unspecified with hypercapnia; J96.91 Respiratory failure, unspecified with hypoxia; N17.9 Acute kidney failure, unspecified; M62.82 Rhabdomyolysis; S91.339A Puncture wound without foreign body, unspecified foot, initial encounter; G40.909 Epilepsy, unspecified, not intractable, without status epilepticus; Z59.00 Homelessness unspecified; K76.0 Fatty (change of) liver, not elsewhere classified; Z20.822 Contact with and (suspected) exposure to COVID-19; R11.10 Vomiting, unspecified
CPT/HCPCS: 36415; 36600; 71045; 74176; 76700; 80048; 80076; 80305; 80307; 80320; 80329; 81003; 82140; 82150; 82375; 82550; 82805; 83036; 83735; 84132; 84443; 85025; 86705; 86709; 87070; 87077; 87186; 87340; 87426; 87804; 93005; 93306; 93970; 94640; 94660; 95816; 97161; 99291; C9113; J0133; J0692; J1650; J1953; J2405; J2543; J3370; J3411; J3480; J3490; J7050; J7060; J7070; A4315; G0480